=== PATIENT | male | born 1980 | race American Indian/Alaskan Native ===

== ENCOUNTER 2017-08-11 08:49 | Emergency (ER) | payer SELFPAY ==
[2017-08-11 09:10] VITALS: BP 122/77
--- NOTE | 2017-08-11 13:32 | Emergency Department Report ---
ED Male HPI - General Chief complaint: Pain General Stated complaint: BUTTOCK PAIN Time Seen by Provider: 08/11/17 12:52 Source: patient Mode of arrival: Ambulatory Limitations: No Limitations - History of Present Illness Initial comments: Patient here reports that he has hemorrhoids who is brought up that it's painful. He said he has a history of hemorrhoids versus rectal area. He states it is very painful to sit down. And pain has been worsening since this morning. Pain is 8 out of 10 to his rectal area. Denies any rectal bleeding. Denies any rectal abscess, drainage. Denies any fever or chills. Denies any urinary burning frequency or urgency. Denies any abdominal pain. He said he has had it before and he was constipated and he thinks that it came back. MD Complaint: other (rectal pain) -: This morning Radiation: none Severity: severe Severity scale (0 -10): 8 Quality: sharp, stabbing Consistency: intermittent Improves with: rest Worsens with: palpation, movement lifting denies: discharge, swelling, mass, rash, urinary retention, blood in urine, dysuria, fever, nausea/vomiting, incontinence - Related Data Sexually active: Yes Previous Rx's Medication Instructions Recorded Last Taken Type Hydrocortisone [Anusol-Hc] 30 gm RC BID #1 cream..g. 08/11/17 Unknown Rx Lidocaine [Lidocaine GEL] 30 gm TP TID PRN #1 gel..gram. 08/11/17 Unknown Rx Allergies Allergy/AdvReac Type Severity Reaction Status Date / Time No Known Allergies Allergy Unverified 08/11/17 09:05 ED Review of Systems ROS: Stated complaint: BUTTOCK PAIN Other details as noted in HPI Comment: All other systems reviewed and negative Constitutional: no symptoms reported Respiratory: no symptoms reported Cardiovascular: denies: chest pain, palpitations, edema, syncope Gastrointestinal: constipation. denies: abdominal pain, nausea, vomiting, diarrhea, hematemesis, melena, hematochezia Genitourinary: other (rectal pain). denies: urgency, dysuria, frequency, hematuria, discharge, testicular pain, testicular mass Musculoskeletal: denies: back pain, arthralgia, myalgia Skin: denies: rash Neurological: denies: headache, weakness, numbness, paresthesias, confusion, abnormal gait, vertigo ED Past Medical Hx - Past Medical History Previous Medical History?: Yes Additional medical history: constipation, hemorrhoid @ age 17, back pain - Surgical History Past Surgical History?: Yes Additional Surgical History: Left knee surgery, Left testicle removed - Family History Family history: no significant - Social History Smoking Status: Current Every Day Smoker Substance Use Type: Alcohol, Non Opiate Pain - Medications Home Medications: Home Medications Medication Instructions Recorded Confirmed Last Taken Type Hydrocortisone [Anusol-Hc] 30 gm RC BID #1 cream..g. 08/11/17 Unknown Rx Lidocaine [Lidocaine GEL] 30 gm TP TID PRN #1 gel..gram. 08/11/17 Unknown Rx ED Physical Exam - General Limitations: No Limitations General appearance: alert, in no apparent distress - Head Head exam: Present: atraumatic, normocephalic, normal inspection - Eye Eye exam: Present: normal appearance, PERRL, EOMI Pupils: Present: normal accommodation - ENT ENT exam: Present: normal exam, normal orophraynx, mucous membranes moist - Neck Neck exam: Present: normal inspection, full ROM. Absent: tenderness - Respiratory Respiratory exam: Present: normal lung sounds bilaterally. Absent: respiratory distress, chest wall tenderness, accessory muscle use - Cardiovascular Cardiovascular Exam: Present: regular rate, normal rhythm, normal heart sounds. Absent: systolic murmur, diastolic murmur - GI/Abdominal GI/Abdominal exam: Present: soft, normal bowel sounds. Absent: distended, tenderness, guarding, rebound, rigid, organomegaly, mass, bruit, pulsatile mass - Rectal Rectal exam: Present: hemorrhoids (external hemorrhoid), tenderness (to palpate at hemorrhoid). Absent: fecal impaction, mass - exam: Present: normal inspection External exam: Present: normal external exam - Extremities Exam Extremities exam: Present: normal inspection, full ROM, normal capillary refill , other (clubbing, cyanosis or edema. +2 pulses in all extremities no neurovascular compromise). Absent: tenderness, pedal edema, joint swelling, calf tenderness - Back Exam Back exam: Present: normal inspection, full ROM. Absent: tenderness, CVA tenderness (R), CVA tenderness (L), muscle spasm, paraspinal tenderness, vertebral tenderness, rash noted - Neurological Exam Neurological exam: Present: alert, oriented X3, normal gait - Psychiatric Psychiatric exam: Present: normal affect, normal mood - Skin Skin exam: Present: warm, dry, intact, normal color. Absent: rash ED Course Vital Signs 08/11/17 09:05 Temperature 98.1 F Pulse Rate 63 Respiratory 18 Rate Blood Pressure 122/77 O2 Sat by Pulse 99 Oximetry - Reevaluation(s) Reevaluation #1: 08/11/17 14:53 Patient is stable and topical lidocaine applied to external hemorrhoid to rectal area. ED Medical Decision Making - Medical Decision Making ED course: Seen here complaining of rectal pain. Physical findings were solitary hemorrhoid to rectal area. Hemorrhoid is not thrombosed. Patient with small external hemorrhoid that is tender to palpate. Topical viscous lidocaine applied to site to manage pain. I discussed the patient that he will be treated with topical hemorrhoid cream and also prescribe some lidocaine along with some pain medication for him. I discussed with him if this is not resolved within 2 days that he needs to follow up with outpatient surgery for management and possible surgical removal of hemorrhoid. She was understanding of discharge instruction and treatment plan discharge home in stable condition. I also explained to that he needs to increase his fluid intake, increase his fiber in his diet and possible take a stool softener if he suffers from chronic constipation. I also explained to him that he has to avoid heavy lifting or strain to history of hemorrhoid. Patient discharged home with prescription for lidocaine to apply to side and also topical steroid. Critical care attestation.: If time is entered above; I have spent that time in minutes in the direct care of this critically ill patient, excluding procedure time. ED Disposition Clinical Impression: External hemorrhoids without complication, Rectal pain Disposition: DC-01 TO HOME OR SELFCARE Is pt being admited?: No Does the pt Need Aspirin: No Condition: Stable Instructions: Hemorrhoids (ED), Analgesic (On the skin) Additional Instructions: Please follow-up with your primary care physician and if he do not have a primary fifth physician you can follow-up at [facility]. If hemorrhoids does not resolve, You will need to follow-up with a surgeon for removal. Keep affected area clean and dry Use stool softener as prescribed Do not drive or operate heavy machinery while taking Tylenol No. 3 as this medication causes drowsiness Increase your fluid and your fiber intake Prescriptions: Hydrocortisone [Anusol-Hc] 30 gm RC BID #1 cream..g. Lidocaine [Lidocaine GEL] 30 gm TP TID PRN #1 gel..gram. PRN Reason: Pain Referrals: PRIMARY CAREMD [Primary Care Provider] - 08/12/17 DAVIAN ROSENTHAL MD [Staff Physician] - 08/16/17 Forms: Work/School Release Form(ED)
[2017-08-11] MEDS ORDERED: XYLOCAINE TOPICAL 2% TP ONE ×2 (14:46→16:00)
[2017-08-11] MEDS ORDERED: XYLOCAINE TOPICAL 2% ONE (15:00)
== END 2017-08-11 15:32 | disposition home or self-care (01) ==
LOC: ED 08:49
DX: K62.5 Hemorrhage of anus and rectum (principal); F17.200 Nicotine dependence, unspecified, uncomplicated
CPT/HCPCS: 99282